=== PATIENT | male | born 1960 | race Caucasian/White ===

== ENCOUNTER 2024-02-13 03:45 | Emergency (ER) | payer MEDICARE ==
[~2024-02-13] VITALS: Ht 175.3 cm; Wt 75.0 kg
[2024-02-13] MEDS ORDERED: EPINEPHrine 1 MG/10 ML (1:10,000) SYRINGE IV ONE ×2 (03:48→03:55)
[2024-02-13] MEDS ORDERED: Amiodarone 150 MG/3 ML VIAL IV ONE ×2 (04:02→04:19)
[2024-02-13] MEDS ORDERED: Sodium Bicarbonate 8.4% 50 MEQ/50 ML SYRINGE IV ONE (04:08)
[2024-02-13] MEDS ORDERED: Midazolam 2 MG/2 ML VIAL IV ONE (04:20)
[2024-02-13 04:28] LABS: HEMATOCRIT 47.5 % (42.0-52.0); HEMOGLOBIN 14.7 g/dl (13.5-18.0); MEAN CELL VOLUME 96 fl (80.0-100.0); MEAN CORPUSCULAR HEMOGLOBIN 30 pg (27-31); MEAN CORPUSCULAR HGB CONC 31 g/dl (33.0-37.0); MEAN PLATELET VOLUME 10.5 fl (7.4-10.4); PLATELET COUNT 165 K/mm3 (130-400); RED BLOOD COUNT 4.97 M/mm3 (4.20-5.60); REDCELL DISTRIBUTION WIDTH-CV 13.2 % (11.5-14.5)
[2024-02-13] MEDS ORDERED: fentaNYL 100 ML IV ONE (04:30)
[2024-02-13 04:34] LABS: INR 1.2 (0.8-3.0); PROTHROMBIN TIME 12.7 SECONDS (9.7-12.8)
[2024-02-13 04:37] LABS: PH 5.5 (5.0-8.5); URINE APPEARANCE CLEAR (CLEAR/HAZY); URINE BLOOD 3+ (NEGATIVE); URINE COLOR YELLOW (YELLOW); URINE GLUCOSE TRACE (NEGATIVE); URINE KETONE NEGATIVE (NEGATIVE); URINE NITRATE NEGATIVE (NEGATIVE); URINE PROTEIN(semi-quant) TRACE (NEGATIVE); URINE UROBILINOGEN 0.2 E.U/dL (0.2-1.0)
[2024-02-13] MEDS ORDERED: Vasopressin 20 UNITS in NS 100 ML IV ONE (04:37)
[2024-02-13] MEDS ORDERED: Magnesium Sulfate 4% 50 ML IV ONE (04:38)
[2024-02-13] MEDS ORDERED: NOVOLIN 70/30 710 ML (04:38)
[2024-02-13] MEDS ORDERED: ASPIRIN 81M81 MG/TA2 (04:38)
[2024-02-13 04:45] LABS: ALBUMIN 2.8 g/dL (3.4-4.8); BILIRUBIN,TOTAL 0.2 mg/dL (0.2-1.2); CALCIUM 8.6 mg/dL (8.4-10.2); CREATININE, serum 1.93 mg/dL (0.72-1.25); POTASSIUM 4.3 mEq/L (3.5-4.5); TOTAL PROTEIN 6.2 g/dl (6.2-8.1)
[2024-02-13 04:53] LABS: COLLECTION METHOD CATHETER
--- NOTE | 2024-02-13 04:53 | NUR ---
RR INCREASED FROM 20 TO 24 PER S/P VBG RESULTS W CO2 OF 76
[2024-02-13 04:56] LABS: TROPONIN-I 0.684 ng/mL (0.00-0.033)
[2024-02-13 04:58] LABS: ARTERIAL BLOOD GAS HCO3 10.6 meq/L (22-26); ARTERIAL BLOOD GAS PCO2 26.9 mmHg (35-45); ARTERIAL BLOOD GAS PO2 365.6 mmHg (80-100); ARTERIAL BLOOD GAS pH 7.21 (7.35-7.45)
[2024-02-13 04:59] LABS: ARTERIAL BLD GAS O2 SATURATION 99.5 % (92-100); ARTERIAL BLD GAS TCO2 CT 19.4; ARTERIAL BLOOD GAS BASE EXCESS -15.7 (-2-2)
[2024-02-13 05:03] LABS: BAND 3 % (0-10); EOSINOPHIL 2 % (0-4); NEUTROPHILS 32 % (42.0-75.2)
[2024-02-13 05:08] LABS: HYPOCHROMIA 2+; LYMPHOCYTE 61 % (20.0-51.0); PLATELET ESTIMATE NORMAL (NORMAL)
[2024-02-13 05:09] LABS: BURR CELLS 1+
[2024-02-13] MEDS ORDERED: Pantoprazole 80 MG in NS 100 ML IV ONE (05:30)
[2024-02-13] MEDS ORDERED: NS 50 ML IV SCH (05:50)
[2024-02-13] MEDS ORDERED: Iohexol 300 - 100 ML VIAL IV ONE (05:50)
[2024-02-13] MEDS ORDERED: Heparin 5,000 UNITS/ML 1 ML VIAL IV ONE (06:00)
[2024-02-13] MEDS ORDERED: Heparin/D5W 250 ML IV SCH (06:00)
[2024-02-13] MEDS ORDERED: Clopidogrel 300 MG DOSE (75 mg x 4 tabs) PO ONE (06:00)
[2024-02-13] MEDS ORDERED: Heparin 5,000 UNITS/ML 1 ML VIAL IV PRN (06:00)
[2024-02-13 06:17] LABS: HEMATOCRIT 40.1 % (42.0-52.0); HEMOGLOBIN 12.8 g/dl (13.5-18.0); MEAN CELL VOLUME 94 fl (80.0-100.0); MEAN CORPUSCULAR HEMOGLOBIN 30 pg (27-31); MEAN CORPUSCULAR HGB CONC 32 g/dl (33.0-37.0); MEAN PLATELET VOLUME 10.6 fl (7.4-10.4); PLATELET COUNT 218 K/mm3 (130-400); RED BLOOD COUNT 4.28 M/mm3 (4.20-5.60); REDCELL DISTRIBUTION WIDTH-CV 13.3 % (11.5-14.5)
[2024-02-13 06:39] LABS: INR 1.4 (0.8-3.0); PROTHROMBIN TIME 14.7 SECONDS (9.7-12.8)
[2024-02-13 06:42] LABS: PARTIAL THROMBOPLASTIN TIME 31.8 SECONDS (26.0-37.0)
[2024-02-13 07:15] VITALS: BP 130/81; PULSE 81
== END 2024-02-13 07:15 | disposition short-term general hospital (02) ==
LOC: COL.ER 04:00
PROVIDERS: Emergency Medicine
DX: I46.9 Cardiac arrest, cause unspecified (principal); I21.3 ST elevation (STEMI) myocardial infarction of unspecified site; E87.20 Acidosis, unspecified; R79.89 Other specified abnormal findings of blood chemistry; F17.210 Nicotine dependence, cigarettes, uncomplicated; Z95.5 Presence of coronary angioplasty implant and graft
CPT/HCPCS: J0171; J0282; J2250; J2598; J2704; J3010; J3475; J7060; Q9967